=== PATIENT | female | born 1990 | race Caucasian/White ===

== ENCOUNTER 2021-08-02 07:08 | Emergency (ER) | payer SELFPAY ==
[~2021-08-02] VITALS: Ht 167.6 cm; Wt 77.3 kg
[2021-08-02 07:14] VITALS: BP 134/80
[2021-08-02] MEDS ORDERED: DIPH25CA83 PO (09:51)
[2021-08-02] MEDS ORDERED: FAMO10TA41 PO (09:51)
[2021-08-02] MEDS ORDERED: PRED10TA23 PO (09:51)
== END 2021-08-02 10:06 | disposition home or self-care (01) ==
LOC: ER 07:09
DX: L23.7 Allergic contact dermatitis due to plants, except food (principal); J02.9 Acute pharyngitis, unspecified; Z88.1 Allergy status to other antibiotic agents; Z88.5 Allergy status to narcotic agent; Z88.8 Allergy status to other drugs, medicaments and biological substances; Z79.899 Other long term (current) drug therapy
CPT/HCPCS: 99283

== ENCOUNTER 2021-08-04 14:30 | Emergency (ER) | payer SELFPAY ==
[~2021-08-04] VITALS: Ht 167.6 cm; Wt 77.3 kg
[~2021-08-04 14:30] MED LIST: DIPH25CA83 PO; FAMO10TA41 PO; PRED10TA23 PO
[2021-08-04 14:41] VITALS: BP 135/82
[2021-08-04] MEDS ORDERED: dexamethasone sod phosphate 10mg/ml inj PO STA (14:48)
[2021-08-04] MEDS ORDERED: diphenhydrAMINE 25mg capsule PO ONE (14:50)
[2021-08-04] MEDS ORDERED: HYDR28CR14 TOP (14:52)
== END 2021-08-04 15:15 | disposition home or self-care (01) ==
LOC: ER 14:31
DX: L23.7 Allergic contact dermatitis due to plants, except food (principal); Z88.1 Allergy status to other antibiotic agents; Z88.8 Allergy status to other drugs, medicaments and biological substances; Z88.5 Allergy status to narcotic agent; Z79.899 Other long term (current) drug therapy
CPT/HCPCS: 99283

== ENCOUNTER 2021-08-11 17:40 | Emergency (ER) | payer MEDICAID ==
[~2021-08-11] VITALS: Ht 165.1 cm; Wt 77.0 kg
[~2021-08-11 17:40] MED LIST changes: +HYDR28CR14 TOP
[2021-08-11 18:41] LABS: BASOPHILS # (AUTO) 0.1 X10'3 (0-0.2); BASOPHILS % (AUTO) 0.5 % (0-1); EOSINOPHILS # (AUTO) 2.1 X10'3 (0-0.9); HEMATOCRIT 39.5 % (35.0-45.0); HEMOGLOBIN 13.3 g/dl (12.0-16.0); LYMPHOCYTES # (AUTO) 2.2 X10'3 (1.1-4.8); LYMPHOCYTES % (AUTO) 11.6 % (21-51); MEAN CORPUSCULAR HEMOGLOBIN 30.3 PG (27.0-31.0); MEAN CORPUSCULAR HGB CONC 33.6 g/dL (33.0-36.5); MEAN PLATELET VOLUME 8.3 FL (7.4-10.4); MONOCYTES # (AUTO) 0.9 X10'3 (0-0.9); NEUTROPHILS # (AUTO) 13.6 X10'3 (1.8-7.7); NEUTROPHILS % (AUTO) 71.9 % (42-75); PLATELET COUNT 280 X10'3 (140-440); RED BLOOD COUNT 4.39 X10'6 (4.20-5.60); RED CELL DISTRIBUTION WIDTH 13.4 % (11.5-14.5); WHITE BLOOD COUNT 18.9 X10'3 (4.5-11.0)
[2021-08-11 18:51] LABS: ALANINE AMINOTRANSFERASE 30 U/L (12-78); ALBUMIN 3.1 G/DL (3.4-5.0); ALKALINE PHOSPHATASE 80 IU/L (46-116); ANION GAP 10 (8-16); ASPARTATE AMINO TRANSFERASE 14 U/L (10-37); BILIRUBIN,TOTAL 0.2 MG/DL (0.1-1.0); BLOOD UREA NITROGEN 13 MG/DL (7-18); BUN/CREATININE RATIO 15.3 (6.6-38.0); CALCIUM 8.8 MG/DL (8.5-10.1); CHLORIDE 101 MMOL/L (99-107); CREATININE 0.85 MG/DL (0.40-0.90); GLUCOSE 134 MG/DL (70-104); SODIUM 138 MMOL/L (135-145); TOTAL CARBON DIOXIDE 26.9 MMOL/L (24-32); TOTAL PROTEIN 6.3 G/DL (6.4-8.2); eGFR 78 ML/MIN
[2021-08-11] MEDS ORDERED: normal saline 1000ML IV soln IV ONE (21:05)
[2021-08-11] MEDS ORDERED: NO HOME MEDS (22:01)
[2021-08-11] MEDS ORDERED: DOXY-1 PO (22:33)
[2021-08-11] MEDS ORDERED: DOXYCYCLINE 100MG CAPSULE PO STA (22:33)
[2021-08-11 23:31] VITALS: BP 126/77
== END 2021-08-11 23:33 | disposition home or self-care (01) ==
LOC: ER 17:40
DX: L23.7 Allergic contact dermatitis due to plants, except food (principal); L03.90 Cellulitis, unspecified; R05.9 Cough, unspecified; R09.89 Other specified symptoms and signs involving the circulatory and respiratory systems; J45.909 Unspecified asthma, uncomplicated; Z88.1 Allergy status to other antibiotic agents; Z88.8 Allergy status to other drugs, medicaments and biological substances; Z88.5 Allergy status to narcotic agent; Z79.2 Long term (current) use of antibiotics
CPT/HCPCS: 36415; 80053; 83605; 84145; 85025; 85651; 87040; 96360; 96361; 99283; J7030